=== PATIENT | male | born 1965 | race Caucasian/White ===

== ENCOUNTER 2019-12-01 11:58 | Emergency (ER) | payer OTHER ==
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
[2019-12-01 12:24] VITALS: BP 134/85; PULSE 116; TEMP 98.6; BMI 33.5
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
[2019-12-01 13:50] LABS: BASO % 2.5 % (0-2.0); EOS % 1.8 % (0-4.5); HEMOGLOBIN 12.5 GM/dL (11.7-16.9); LYMPH % 29.1 % (8-40); MCH 27.5 pg (25.7-33.7); MCHC 32.8 g/dl (32.0-35.9); MONO % 7.2 % (3.8-10.2); NEUT % 59.4 % (42.8-82.8); PLATELET COUNT 266 K/MM3 (134-434); RBC 4.52 M/mm3 (4.00-5.60); RDW 15.1 % (11.9-15.9); WHITE BLOOD COUNT 6.5 K/mm3 (4.0-10.0)
[2019-12-01 13:51] LABS: INR 1.13 (0.83-1.09); PROTHROMBIN TIME (PATIENT) 13.4 SEC (9.7-13.0)
[2019-12-01 14:01] LABS: ALBUMIN 4.1 g/dl (3.4-5.0); BILIRUBIN,TOTAL 0.4 mg/dL (0.2-1); BLOOD UREA NITROGEN 9.5 mg/dL (7-18); CALCIUM 9.6 mg/dL (8.5-10.1); CREATININE 1.2 mg/dL (0.55-1.3); TOT PROT 7.9 g/dl (6.4-8.2)
== END 2019-12-01 15:50 | disposition home or self-care (01) ==
LOC: JER 11:58
DX: M54.5 Low back pain (principal); V49.50XA Passenger injured in collision with unspecified motor vehicles in traffic accident, initial encounter
CPT/HCPCS: 36415; 70450-TC; 72125-TC; 72128-TC; 72131-TC; 80053; 85025; 85610; 86850; 86900; 86901; 99285-25

== ENCOUNTER 2022-11-15 16:56 | Emergency (ER) | payer OTHER ==
[2022-11-15 17:10] VITALS: BP 133/80; PULSE 84; RESP 18; TEMP 98.7; BMI 23.7
[2022-11-15] MEDS ORDERED: DEXAMETHASONE SOD PHOSPHATE 10 MG/1 ML VIAL IM ONE (17:35)
[2022-11-15] MEDS ORDERED: DEXAMETHASONE SOD PHOSPHATE 10 MG/1 ML VIAL ONE (17:43)
== END 2022-11-15 18:12 | disposition home or self-care (01) ==
LOC: JER 16:56
PROC: 3E023GC Introduction of Other Therapeutic Substance into Muscle, Percutaneous Approach (ICD-10-PCS; principal; 2022-11-15)
DX: R21 Rash and other nonspecific skin eruption (principal); L23.7 Allergic contact dermatitis due to plants, except food
CPT/HCPCS: 99284-25; J1100

== ENCOUNTER 2023-11-16 06:14 | Day surgery (SDC) | payer OTHER ==
[2023-11-16] MEDS: morphine CARPU-JECT 4 MG/1 ML DISP.SYRIN IVPUSH ONE (08:20)
[2023-11-16] MEDS: SODIUM CHLORIDE 1,000 ML IV STA (08:20)
[2023-11-16] MEDS: ACETAMINOPHEN 1000 MG/100 ML BAG IVPB ONE (08:25)
[2023-11-16] MEDS ORDERED: morphine SULFATE 4 MG/ML VIAL ONE (08:27)
[2023-11-16] MEDS ORDERED: ACETAMINOPHEN INJECTION 100 ML IVPB ONE ×2 (08:27→18:28)
[2023-11-16 08:54] LABS: EPI CELLS 5 /uL (0-25.1); HYALINE CASTS 0 /uL (0-3.1); PH,URINE 7.5 (5.0-8.0); URINE APPEARANCE CLOUDY; URINE BACTERIA 5 /uL (0-1359); URINE BILIRUBIN NEGATIVE (NEGATIVE); URINE COLOR ORANGE; URINE GLUCOSE (UA) NEGATIVE (NEGATIVE); URINE KETONE TRACE (NEGATIVE); URINE LEUK ESTERASE TRACE (NEGATIVE); URINE NITRITE NEGATIVE (NEGATIVE); URINE PROTEIN 1+ (NEGATIVE); URINE RBC 7070 /uL (0-23.9); URINE WBC 24 /uL (0-25.8)
[2023-11-16 08:57] LABS: BASO % 0.7 % (0-2.0); EOS % 0.1 % (0-4.5); HEMATOCRIT 39.5 % (35.4-49); HEMOGLOBIN 12.9 GM/dL (11.7-16.9); LYMPH % 14.7 % (8-40); MCH 27.9 pg (25.7-33.7); MCHC 32.7 g/dl (32.0-35.9); MEAN CELL VOLUME 85.3 fl (80-96); MONO % 4.9 % (3.8-10.2); NEUT % 79.6 % (42.8-82.8); PLATELET COUNT 293 10^3/uL (134-434); RBC 4.63 M/mm3 (4.00-5.60); RDW 18.8 % (11.9-15.9); WHITE BLOOD COUNT 12.7 K/mm3 (4.0-10.0)
[2023-11-16 09:16] LABS: POTASSIUM 4.4 mmol/L (3.5-5.1)
[2023-11-16 09:18] LABS: CALCIUM 9.7 mg/dL (8.5-10.1)
[2023-11-16 09:19] LABS: ALBUMIN 4.1 g/dl (3.4-5.0)
[2023-11-16 09:22] LABS: CREATININE 1.7 mg/dL (0.55-1.3)
[2023-11-16 09:24] LABS: BILIRUBIN,TOTAL 0.5 mg/dL (0.2-1)
[2023-11-16] MEDS ORDERED: HYDROmorphone HCL CARPU-JECT 2 MG/1 ML DISP.SYRIN ONE ×2 (10:59→13:59)
[2023-11-16] MEDS: HYDROmorphone HCl 2 MG/ML VIAL SQ ONE (11:05)
[2023-11-16] MEDS ORDERED: TAMSULOSIN HCL 0.4 MG CAP ONE (14:00)
[2023-11-16] MEDS ORDERED: HEPARIN NA (PORCINE) 5,000 UNITS/ML 1ML VIAL SQ SCH (14:00)
[2023-11-16] MEDS: SODIUM CHLORIDE 1,000 ML IV SCH ×2 (14:07→20:00)
[2023-11-16] MEDS: TAMSULOSIN HCL 0.4 MG CAP PO ONE (14:08)
[2023-11-16] MEDS: HYDROmorphone HCl 2 MG/ML VIAL IVPUSH ONE (14:08)
[2023-11-16] MEDS ORDERED: MORPHINE SULFATE 2 MG/ML SYRINGE IVPUSH PRN (14:18)
[2023-11-16] MEDS ORDERED: ACETAMINOPHEN 1000 MG/100 ML BAG IVPB PRN ×2 (14:18→19:21)
[2023-11-16] MEDS ORDERED: PROPOFOL 20 ML ONE (16:19)
[2023-11-16] MEDS ORDERED: LIDOCAINE HCL/PF 2% SDV 5ML VIAL ONE (16:19)
[2023-11-16] MEDS ORDERED: MIDAZOLAM HCL 2 MG/2 ML SINGLE DOSE VIAL ONE (16:20)
[2023-11-16 16:55] VITALS: BMI 31.1
[2023-11-16] MEDS: INSULIN ASPART SLIDING SCALE (NOVOLOG) 1 VIAL SQ SCH ×2 (16:56→21:33)
[2023-11-16] MEDS ORDERED: ONDANSETRON 4 MG/2 ML VIAL IVPUSH PRN ×2 (17:39→19:21)
[2023-11-16] MEDS ORDERED: PROPOFOL 40 ML ONE (17:47)
[2023-11-16] MEDS: ceFAZolin SODIUM 1 GM VIAL IVPB ONE (17:50)
[2023-11-16] MEDS: LACTATED RINGERS SOLUTION 1,000 ML IV SCH ×2 (21:04→21:05)
[2023-11-17 02:52] VITALS: RESP 18
[2023-11-17 07:39] LABS: BASO % 1.2 % (0-2.0); EOS % 0.9 % (0-4.5); HEMATOCRIT 36.9 % (35.4-49); HEMOGLOBIN 12.5 GM/dL (11.7-16.9); LYMPH % 26.1 % (8-40); MCH 28.3 pg (25.7-33.7); MCHC 33.8 g/dl (32.0-35.9); MEAN CELL VOLUME 83.6 fl (80-96); MEAN PLT VOLUME 8.6 fl (7.5-11.1); MONO % 9.4 % (3.8-10.2); NEUT % 62.4 % (42.8-82.8); PLATELET COUNT 272 10^3/uL (134-434); RBC 4.41 M/mm3 (4.00-5.60); RDW 18.7 % (11.9-15.9); WHITE BLOOD COUNT 9.7 K/mm3 (4.0-10.0)
[2023-11-17 08:00] LABS: POTASSIUM 4.3 mmol/L (3.5-5.1)
[2023-11-17 08:04] LABS: BLOOD UREA NITROGEN 14.4 mg/dL (7-18); CALCIUM 8.7 mg/dL (8.5-10.1)
[2023-11-17 08:05] LABS: MAGNESIUM 1.7 mg/dL (1.8-2.4)
[2023-11-17 08:07] LABS: PHOSPHOROUS 3.2 mg/dL (2.5-4.9)
[2023-11-17 08:08] LABS: CREATININE 1.5 mg/dL (0.55-1.3)
[2023-11-17 08:10] LABS: TOT PROT 6.9 g/dl (6.4-8.2)
[2023-11-17 08:14] LABS: BILIRUBIN,TOTAL 0.5 mg/dL (0.2-1)
[2023-11-17] MEDS ORDERED: TAMSULOSIN HCL 0.4 MG CAP PO SCH (08:30)
[2023-11-17 08:33] LABS: ALBUMIN 3.2 g/dl (3.4-5.0)
[2023-11-17] MEDS: TAMSULOSIN HCL 0.4 MG CAP PO SCH (08:38)
[2023-11-17] MEDS: MAGNESIUM SULF 50% (8.12 MEQ/2 ML-1 GM VIAL) IVPB ONE (08:57)
[2023-11-17] MEDS: FOLIC ACID 1 MG TABLET (FP) PO SCH (09:23)
[2023-11-17] MEDS ORDERED: LISINOPRIL 10 MG TABLET PO SCH (10:00)
[2023-11-17 14:33] VITALS: BP 133/78; PULSE 80; TEMP 98.6
[2023-11-17] MEDS ORDERED: ATORVASTATIN CA 10 MG TABLET (FP) PO SCH (22:00)
== END 2023-11-17 15:13 | disposition home or self-care (01) ==
LOC: JER 06:14 → UNDOADMIN 12:15 → JERBED 12:15 → J6S 15:38 → JASUSAT 11-17 13:11 → SUATTDRO 11-17 13:11 → J6S 11-17 13:25 → JASUSAT 11-17 15:13
PROVIDERS: ATTEND Internal Medicine
PROC: 3E033NZ Introduction of Analgesics, Hypnotics, Sedatives into Peripheral Vein, Percutaneous Approach (ICD-10-PCS; principal; 2023-11-17)
PROC: 3E033NZ Introduction of Analgesics, Hypnotics, Sedatives into Peripheral Vein, Percutaneous Approach (ICD-10-PCS; 2023-11-17)
PROC: 3E033NZ Introduction of Analgesics, Hypnotics, Sedatives into Peripheral Vein, Percutaneous Approach (ICD-10-PCS; 2023-11-17)
PROC: 3E033GC Introduction of Other Therapeutic Substance into Peripheral Vein, Percutaneous Approach (ICD-10-PCS; 2023-11-17)
PROC: 3E0337Z Introduction of Electrolytic and Water Balance Substance into Peripheral Vein, Percutaneous Approach (ICD-10-PCS; 2023-11-17)
PROC: 3E013NZ Introduction of Analgesics, Hypnotics, Sedatives into Subcutaneous Tissue, Percutaneous Approach (ICD-10-PCS; 2023-11-17)
DX: R10.32 Left lower quadrant pain (principal); N13.2 Hydronephrosis with renal and ureteral calculous obstruction; R11.0 Nausea; R82.998 Other abnormal findings in urine; N17.9 Acute kidney failure, unspecified
CPT/HCPCS: 36415; 74176-TC; 76000-TC-FY; 80053; 81003; 82962; 83735; 84100; 85025; 87086; 94760; 99285-25; C2617; J0131

== ENCOUNTER 2023-12-27 04:04 | Day surgery (SDC) | payer OTHER ==
[2023-12-23 17:08] VITALS: BMI 31.5
[2023-12-27 06:17] VITALS: RESP 18
[2023-12-27] MEDS ORDERED: DEXTROSE 5%-0.45% SALINE 1,000 ML IV SCH (08:15)
[2023-12-27] MEDS ORDERED: MIDAZOLAM HCL 2 MG/2 ML SINGLE DOSE VIAL ONE (08:32)
[2023-12-27] MEDS: ceFAZolin SODIUM 1 GM VIAL IVPB ONE (08:42)
[2023-12-27] MEDS ORDERED: ONDANSETRON 4 MG/2 ML VIAL IVPUSH PRN (09:55)
[2023-12-27 15:16] VITALS: BP 108/71; PULSE 67; TEMP 97.5
== END 2023-12-27 11:40 | disposition home or self-care (01) ==
LOC: JASU-SURG 04:04
PROVIDERS: ATTEND Urology
PROC: 0TF7XZZ Fragmentation in Left Ureter, External Approach (ICD-10-PCS; principal; 2023-12-27 08:15)
DX: N20.1 Calculus of ureter (principal)
CPT/HCPCS: 82962

== ENCOUNTER 2024-05-05 16:38 | Inpatient (IN) | payer OTHER ==
[2024-05-05] MEDS ORDERED: KETOROLAC TROMETHAMINE 15 MG/ML VIAL ONE (17:48)
[2024-05-05 17:50] LABS: BASO % 0.9 % (0-2.0); EOS % 2.3 % (0-4.5); HEMATOCRIT 40.6 % (35.4-49); HEMOGLOBIN 13.3 GM/dL (11.7-16.9); LYMPH % 27.6 % (8-40); MCHC 32.8 g/dl (32.0-35.9); MEAN CELL VOLUME 88.4 fl (80-96); MEAN PLT VOLUME 8.8 fl (7.5-11.1); NEUT % 60.2 % (42.8-82.8); PLATELET COUNT 336 10^3/uL (134-434); RBC 4.59 M/mm3 (4.00-5.60); RDW 14.8 % (11.9-15.9); WHITE BLOOD COUNT 10.5 K/mm3 (4.0-10.0)
[2024-05-05 17:57] LABS: INR 1.03 (0.83-1.09); PROTHROMBIN TIME (PATIENT) 11.8 SEC (9.7-13.0)
[2024-05-05 17:59] LABS: ACTIVATED PTT 32.8 SECONDS (25.2-36.5)
[2024-05-05] MEDS: KETOROLAC TROMETHAMINE 15 MG/ML VIAL IVPUSH ONE (18:06)
[2024-05-05] MEDS: LACTATED RINGERS SOLUTION 1000 ML INFUS.BAG IV ONE (18:07)
[2024-05-05 18:12] LABS: EPI CELLS 4 /uL (0-25.1); HYALINE CASTS 0 /uL (0-3.1); URINE APPEARANCE CLEAR; URINE BACTERIA 5 /uL (0-1359); URINE BILIRUBIN NEGATIVE (NEGATIVE); URINE COLOR YELLOW; URINE GLUCOSE (UA) NEGATIVE (NEGATIVE); URINE KETONE NEGATIVE (NEGATIVE); URINE LEUK ESTERASE NEGATIVE (NEGATIVE); URINE NITRITE NEGATIVE (NEGATIVE); URINE PROTEIN NEGATIVE (NEGATIVE); URINE RBC 106 /uL (0-23.9); URINE UROBILINOGEN 0.2 mg/dL (0.2-1.0); URINE WBC 8 /uL (0-25.8)
[2024-05-05 18:21] LABS: POTASSIUM 4.8 mmol/L (3.5-5.1)
[2024-05-05 18:23] LABS: CALCIUM 9.7 mg/dL (8.5-10.1)
[2024-05-05 18:24] LABS: ALBUMIN 4.1 g/dl (3.4-5.0); BLOOD UREA NITROGEN 17.9 mg/dL (7-18)
[2024-05-05 18:26] LABS: CREATININE 1.9 mg/dL (0.55-1.3)
[2024-05-05 18:28] LABS: BILIRUBIN,TOTAL 0.3 mg/dL (0.2-1); TOT PROT 8.2 g/dl (6.4-8.2)
[2024-05-05] MEDS ORDERED: morphine SULFATE 4 MG/ML VIAL IVPUSH ONE (19:22)
[2024-05-05] MEDS ORDERED: CEFTRIAXONE 1 G/50 ML PREMIX 50 ML IVPB ONE (19:44)
[2024-05-05] MEDS ORDERED: TAMSULOSIN HCL 0.4 MG CAP ONE (19:44)
[2024-05-05] MEDS ORDERED: morphine SULFATE 4 MG/ML VIAL ONE (19:44)
[2024-05-05] MEDS: morphine CARPU-JECT 4 MG/1 ML DISP.SYRIN IVPUSH ONE ×2 (19:56→19:58)
[2024-05-05] MEDS: SODIUM CHLORIDE 0.9% 500 ML INFUS.BAG IV ONE (19:57)
[2024-05-05] MEDS: TAMSULOSIN HCL 0.4 MG CAP PO ONE (19:57)
[2024-05-05] MEDS: CEFTRIAXONE 1,000 MG in DEXTROSE 5%-WATER - 50 ML IVPB ONE (19:57)
[2024-05-05] MEDS ORDERED: HYDROmorphone HCL 2 MG TABLET ONE (21:04)
[2024-05-05] MEDS: HYDROmorphone HCL 2 MG TABLET PO ONE (21:12)
[2024-05-05] MEDS: LACTATED RINGERS SOLUTION 1,000 ML/1,000 ML INFUS.BAG IV SCH (21:13)
[2024-05-05] MEDS: morphine SULFATE 4 MG/ML VIAL IM PRN (23:20)
[2024-05-05] MEDS: HEPARIN NA (PORCINE) 5,000 UNITS/ML 1ML VIAL SQ SCH (23:21)
[2024-05-06 00:23] VITALS: BMI 32.8
[2024-05-06] MEDS: morphine SULFATE 4 MG/ML VIAL IM PRN (02:33)
[2024-05-06] MEDS: INSULIN ASPART SLIDING SCALE (NOVOLOG) 1 VIAL SQ SCH (06:54)
[2024-05-06] MEDS: morphine SULFATE 4 MG/ML VIAL IVPUSH PRN (06:54)
[2024-05-06] MEDS: TAMSULOSIN HCL 0.4 MG CAP PO SCH (08:34)
[2024-05-06 09:11] LABS: HEMATOCRIT 38.8 % (35.4-49); HEMOGLOBIN 12.3 GM/dL (11.7-16.9); MCH 28.1 pg (25.7-33.7); MCHC 31.6 g/dl (32.0-35.9); MEAN CELL VOLUME 88.9 fl (80-96); MEAN PLT VOLUME 8.8 fl (7.5-11.1); PLATELET COUNT 310 10^3/uL (134-434); RBC 4.36 M/mm3 (4.00-5.60); RDW 14.7 % (11.9-15.9)
[2024-05-06 09:26] LABS: POTASSIUM 4.5 mmol/L (3.5-5.1)
[2024-05-06 09:30] LABS: BLOOD UREA NITROGEN 17.6 mg/dL (7-18); CALCIUM 9.2 mg/dL (8.5-10.1)
[2024-05-06 09:31] LABS: MAGNESIUM 1.6 mg/dL (1.8-2.4)
[2024-05-06 09:34] LABS: CREATININE 1.8 mg/dL (0.55-1.3)
[2024-05-06] MEDS: LACTATED RINGERS SOLUTION 1,000 ML/1,000 ML INFUS.BAG IV SCH (21:40)
[2024-05-06] MEDS: clonazePAM 0.5 MG TABLET PO SCH (21:41)
[2024-05-06] MEDS: ATORVASTATIN CA 10 MG TABLET (FP) PO SCH (21:42)
[2024-05-06] MEDS: rOPINIRole HCL 2 MG TABLET (FP) PO SCH (21:42)
[2024-05-06] MEDS: ASPIRIN 81 MG CHEWABLE TABLETS PO SCH (21:42)
[2024-05-06] MEDS ORDERED: CLONAZEPAM MC SCH (22:00)
[2024-05-07 08:40] LABS: HEMATOCRIT 35.8 % (35.4-49); HEMOGLOBIN 11.8 GM/dL (11.7-16.9); MCH 28.8 pg (25.7-33.7); MCHC 32.8 g/dl (32.0-35.9); MEAN CELL VOLUME 87.7 fl (80-96); MEAN PLT VOLUME 8.7 fl (7.5-11.1); PLATELET COUNT 267 10^3/uL (134-434); RBC 4.08 M/mm3 (4.00-5.60); RDW 14.6 % (11.9-15.9); WHITE BLOOD COUNT 9.5 K/mm3 (4.0-10.0)
[2024-05-07 09:03] LABS: POTASSIUM 4.2 mmol/L (3.5-5.1)
[2024-05-07 09:09] LABS: CALCIUM 8.9 mg/dL (8.5-10.1)
[2024-05-07 09:10] LABS: BLOOD UREA NITROGEN 14.8 mg/dL (7-18)
[2024-05-07 09:13] LABS: CREATININE 1.4 mg/dL (0.55-1.3)
[2024-05-07 09:14] LABS: ALBUMIN 3.3 g/dl (3.4-5.0); BILIRUBIN,TOTAL 0.4 mg/dL (0.2-1); TOT PROT 6.8 g/dl (6.4-8.2)
[2024-05-07] MEDS: FENOFIBRIC ACID 135 MG CAP PO SCH (09:15)
[2024-05-07] MEDS: PANTOPRAZOLE 20 MG TABLET PO SCH (09:16)
[2024-05-07] MEDS: SERTRALINE HCL 50 MG TABLET (FP) PO SCH (09:16)
[2024-05-07] MEDS: ACETAMINOPHEN 1000 MG/100 ML BAG IVPB PRN (13:55)
[2024-05-07] MEDS: ONDANSETRON 4 MG TABLET PO ONE (15:58)
[2024-05-07] MEDS: LACTATED RINGERS SOLUTION 1,000 ML/1,000 ML INFUS.BAG IV SCH (16:47)
[2024-05-07] MEDS: oxyCODONE HCL 5 MG TABLET PO PRN (20:30)
[2024-05-07] MEDS: ZOLPIDEM TARTRATE 5 MG TABLET PO PRN (20:31)
[2024-05-08] MEDS: SODIUM CHLORIDE 1,000 ML IV SCH (06:09)
[2024-05-08] MEDS: ACETAMINOPHEN 325 MG TABLET (FP) PO PRN (10:49)
[2024-05-08] MEDS: DOCUSATE SODIUM 100 MG CAPSULE (FP) PO PRN (10:50)
[2024-05-08] MEDS ORDERED: morphine CARPU-JECT 2 MG/1 ML DISP.SYRIN IVPUSH PRN (11:07)
[2024-05-08] MEDS: CEFTRIAXONE 1 G/50 ML PREMIX 50 ML IVPB SCH (11:59)
[2024-05-08] MEDS: morphine SULFATE 4 MG/ML VIAL IVPUSH PRN (12:02)
[2024-05-08 12:29] LABS: BASO % 0.8 % (0-2.0); EOS % 1.2 % (0-4.5); HEMOGLOBIN 12.5 GM/dL (11.7-16.9); LYMPH % 19.4 % (8-40); MCH 28.8 pg (25.7-33.7); MEAN CELL VOLUME 87.3 fl (80-96); MEAN PLT VOLUME 9.2 fl (7.5-11.1); MONO % 5.6 % (3.8-10.2); PLATELET COUNT 323 10^3/uL (134-434); RBC 4.36 M/mm3 (4.00-5.60); RDW 14.4 % (11.9-15.9); WHITE BLOOD COUNT 10.5 K/mm3 (4.0-10.0)
[2024-05-08 12:43] LABS: INR 1.16 (0.83-1.09)
[2024-05-08 12:46] LABS: POTASSIUM 4.4 mmol/L (3.5-5.1)
[2024-05-08 12:48] LABS: ALBUMIN 3.5 g/dl (3.4-5.0); BLOOD UREA NITROGEN 15.5 mg/dL (7-18); CALCIUM 9.4 mg/dL (8.5-10.1); MAGNESIUM 1.5 mg/dL (1.8-2.4)
[2024-05-08 12:51] LABS: CREATININE 1.4 mg/dL (0.55-1.3)
[2024-05-08 12:53] LABS: BILIRUBIN,TOTAL 0.5 mg/dL (0.2-1); TOT PROT 7.5 g/dl (6.4-8.2)
[2024-05-08] MEDS: amLODIPine BESYLATE 2.5 MG TABLET (FP) PO ONE (13:40)
[2024-05-08] MEDS: MAGNESIUM 2GM/50ML STERILE WATER IVPB IVPB ONE (13:40)
[2024-05-08] MEDS: POLYETHYLENE GLYCOL (HEALTHYLAX) 3350 17 GM PACKET PO SCH (17:55)
[2024-05-09] MEDS: amLODIPine BESYLATE 2.5 MG TABLET (FP) PO SCH (08:07)
[2024-05-09] MEDS ORDERED: LIDOCAINE HCL/PF 2% SDV 5ML VIAL ONE (08:18)
[2024-05-09] MEDS ORDERED: PROPOFOL 40 ML ONE (08:18)
[2024-05-09] MEDS ORDERED: ONDANSETRON 4 MG/2 ML VIAL ONE (08:19)
[2024-05-09] MEDS ORDERED: DEXAMETHASONE SOD PHOSPHATE 4 MG/1 ML VIAL ONE (08:19)
[2024-05-09] MEDS ORDERED: ceFAZolin SODIUM 1 GM VIAL ONE (08:20)
[2024-05-09] MEDS ORDERED: MIDAZOLAM HCL 2 MG/2 ML SINGLE DOSE VIAL ONE (08:22)
[2024-05-09 08:29] LABS: BASO % 0.5 % (0-2.0); EOS % 2.8 % (0-4.5); HEMATOCRIT 39.1 % (35.4-49); HEMOGLOBIN 12.9 GM/dL (11.7-16.9); MCH 28.7 pg (25.7-33.7); MCHC 32.9 g/dl (32.0-35.9); MEAN PLT VOLUME 8.7 fl (7.5-11.1); MONO % 6.7 % (3.8-10.2); PLATELET COUNT 344 10^3/uL (134-434); RBC 4.49 M/mm3 (4.00-5.60); RDW 14.5 % (11.9-15.9)
[2024-05-09] MEDS ORDERED: ONDANSETRON 4 MG/2 ML VIAL IVPUSH PRN ×2 (08:33→10:25)
[2024-05-09] MEDS ORDERED: SODIUM CHLORIDE 1,000 ML IV SCH (08:45)
[2024-05-09 08:50] LABS: POTASSIUM 4.2 mmol/L (3.5-5.1)
[2024-05-09 08:52] LABS: ALBUMIN 3.6 g/dl (3.4-5.0); BLOOD UREA NITROGEN 13.8 mg/dL (7-18); CALCIUM 8.9 mg/dL (8.5-10.1); MAGNESIUM 1.7 mg/dL (1.8-2.4)
[2024-05-09 08:55] LABS: CREATININE 1.4 mg/dL (0.55-1.3)
[2024-05-09 08:57] LABS: BILIRUBIN,TOTAL 0.5 mg/dL (0.2-1); TOT PROT 7.7 g/dl (6.4-8.2)
[2024-05-09] MEDS: cefTRIAXone SODIUM 1 GM VIAL IVPB ONE (08:58)
[2024-05-09] MEDS ORDERED: KETOROLAC TROMETHAMINE 30 MG/1 ML VIAL ONE (09:05)
[2024-05-09] MEDS ORDERED: amLODIPine BESYLATE 2.5 MG TABLET (FP) PO SCH (10:00)
[2024-05-09] MEDS ORDERED: ZOLPIDEM TARTRATE 5 MG TABLET PO PRN (10:25)
[2024-05-09] MEDS ORDERED: DOCUSATE SODIUM 100 MG CAPSULE (FP) PO PRN (10:25)
[2024-05-09] MEDS ORDERED: morphine SULFATE 4 MG/ML VIAL IVPUSH PRN (10:25)
[2024-05-09] MEDS: MAGNESIUM 2GM/50ML STERILE WATER IVPB IVPB ONE ×2 (10:31→11:48)
[2024-05-09] MEDS: SODIUM CHLORIDE 1,000 ML IV SCH (10:40)
[2024-05-09] MEDS: INSULIN ASPART SLIDING SCALE (NOVOLOG) 1 VIAL SQ SCH (11:35)
[2024-05-09 11:50] VITALS: BP 144/95; PULSE 73; RESP 18; TEMP 98.6
[2024-05-09] MEDS: traMADol HCL 50 MG TABLET PO ONE (12:47)
[2024-05-09] MEDS ORDERED: HEPARIN NA (PORCINE) 5,000 UNITS/ML 1ML VIAL SQ SCH (14:00)
[2024-05-09] MEDS ORDERED: clonazePAM 0.5 MG TABLET PO SCH (22:00)
[2024-05-09] MEDS ORDERED: ASPIRIN 81 MG CHEWABLE TABLETS PO SCH (22:00)
[2024-05-09] MEDS ORDERED: rOPINIRole HCL 1 MG TABLET (FP) PO SCH (22:00)
[2024-05-09] MEDS ORDERED: ATORVASTATIN CA 10 MG TABLET (FP) PO SCH (22:00)
[2024-05-10] MEDS ORDERED: TAMSULOSIN HCL 0.4 MG CAP PO SCH (08:30)
[2024-05-10] MEDS ORDERED: FENOFIBRIC ACID 135 MG CAP PO SCH (10:00)
[2024-05-10] MEDS ORDERED: amLODIPine BESYLATE 2.5 MG TABLET (FP) PO SCH (10:00)
[2024-05-10] MEDS ORDERED: PANTOPRAZOLE 20 MG TABLET PO SCH (10:00)
[2024-05-10] MEDS ORDERED: SERTRALINE HCL 50 MG TABLET (FP) PO SCH (10:00)
[2024-05-10] MEDS ORDERED: CEFTRIAXONE 1 G/50 ML PREMIX 50 ML IVPB SCH (10:00)
== END 2024-05-09 16:20 | disposition home or self-care (01) | DRG 446 ==
LOC: JER 16:38 → JERBED 19:25 → J7W 23:13 → J8W 05-06 01:12 → OBSVTOIN 05-08 11:53
PROVIDERS: ADMIT Internal Medicine; ATTEND Nurse Practitioner Family
PROC: 0T768DZ Dilation of Right Ureter with Intraluminal Device, Via Natural or Artificial Opening Endoscopic (ICD-10-PCS; 2024-05-09)
PROC: BT1DZZZ Fluoroscopy of Right Kidney, Ureter and Bladder (ICD-10-PCS; 2024-05-09)
PROC: 0TC68ZZ Extirpation of Matter from Right Ureter, Via Natural or Artificial Opening Endoscopic (ICD-10-PCS; principal; 2024-05-09 08:30)
DX: N13.2 Hydronephrosis with renal and ureteral calculous obstruction (principal); N13.4 Hydroureter; N40.0 Benign prostatic hyperplasia without lower urinary tract symptoms; N17.9 Acute kidney failure, unspecified; E66.9 Obesity, unspecified; Z68.32 Body mass index [BMI] 32.0-32.9, adult; I10 Essential (primary) hypertension; E11.9 Type 2 diabetes mellitus without complications; E78.5 Hyperlipidemia, unspecified
CPT/HCPCS: 36415; 74176-TC; 76000-TC-FY; 76705-TC; 80048; 80053; 81003; 82962; 83690; 83735; 84100; 85025; 85027; 85610; 85730; 86850; 86900; 86901; 87086; 93005; 93010; 94760; 99285-25; C1758; G0378; J0131; J1644

== ENCOUNTER 2024-06-03 15:06 | Emergency (ER) | payer OTHER ==
[2024-06-03 15:25] VITALS: BP 132/87; PULSE 87; RESP 18; TEMP 98.3; BMI 31.5
[2024-06-03 16:24] LABS: URINE APPEARANCE CLEAR; URINE BILIRUBIN NEGATIVE (NEGATIVE); URINE COLOR YELLOW; URINE GLUCOSE (UA) NEGATIVE (NEGATIVE); URINE KETONE NEGATIVE (NEGATIVE); URINE LEUK ESTERASE 1+ (NEGATIVE); URINE NITRITE NEGATIVE (NEGATIVE); URINE PROTEIN NEGATIVE (NEGATIVE); URINE UROBILINOGEN 0.2 mg/dL (0.2-1.0)
[2024-06-03] MEDS ORDERED: KETOROLAC TROMETHAMINE 30 MG/1 ML VIAL ONE (16:42)
[2024-06-03 16:45] LABS: BASO % 2.3 % (0-2.0); EOS % 1.8 % (0-4.5); HEMATOCRIT 39.2 % (35.4-49); LYMPH % 24.4 % (8-40); MCH 28.6 pg (25.7-33.7); MCHC 33.1 g/dl (32.0-35.9); MEAN CELL VOLUME 86.3 fl (80-96); MEAN PLT VOLUME 8.9 fl (7.5-11.1); MONO % 9.8 % (3.8-10.2); NEUT % 61.7 % (42.8-82.8); PLATELET COUNT 292 10^3/uL (134-434); RBC 4.54 M/mm3 (4.00-5.60); RDW 14.8 % (11.9-15.9); WHITE BLOOD COUNT 12.4 K/mm3 (4.0-10.0)
[2024-06-03] MEDS: KETOROLAC TROMETHAMINE 30 MG/1 ML VIAL IVPUSH ONE (16:45)
[2024-06-03 17:33] LABS: POTASSIUM 4.7 mmol/L (3.5-5.1)
[2024-06-03 17:34] LABS: ALBUMIN 3.8 g/dl (3.4-5.0); BLOOD UREA NITROGEN 13.9 mg/dL (7-18); CALCIUM 9.9 mg/dL (8.5-10.1)
[2024-06-03 17:37] LABS: CREATININE 1.3 mg/dL (0.55-1.3)
[2024-06-03 17:40] LABS: BILIRUBIN,TOTAL 0.6 mg/dL (0.2-1); TOT PROT 7.7 g/dl (6.4-8.2)
[2024-06-03 19:41] LABS: EPI CELLS 4.7 /uL (0-25.1); HYALINE CASTS 0.13 /uL (0-3.1); URINE BACTERIA 6.5 /uL (0-1359); URINE RBC 6.1 /uL (0-23.9); URINE WBC 16.7 /uL (0-25.8)
[2024-06-03] MEDS ORDERED: morphine SULFATE 4 MG/ML VIAL ONE (20:42)
[2024-06-03] MEDS: morphine CARPU-JECT 4 MG/1 ML DISP.SYRIN IVPUSH ONE (20:45)
[2024-06-03] MEDS ORDERED: metroNIDAZOLE 250 MG TABLET ONE (22:06)
[2024-06-03] MEDS: CIPROFLOXACIN 500 MG TABLET (RESTRICTED TO ID) PO ONE (22:10)
[2024-06-03] MEDS: metroNIDAZOLE 250 MG TABLET PO ONE (22:10)
== END 2024-06-03 22:37 | disposition home or self-care (01) ==
LOC: JER 15:06
PROC: 3E033GC Introduction of Other Therapeutic Substance into Peripheral Vein, Percutaneous Approach (ICD-10-PCS; principal; 2024-06-03)
PROC: 3E033NZ Introduction of Analgesics, Hypnotics, Sedatives into Peripheral Vein, Percutaneous Approach (ICD-10-PCS; 2024-06-03)
DX: R10.31 Right lower quadrant pain (principal); K57.92 Diverticulitis of intestine, part unspecified, without perforation or abscess without bleeding
CPT/HCPCS: 36415; 74177-TC; 80053; 81003; 85025; 87086; 99285-25; Q9967